=== PATIENT | female | born 1995 | race Two or more races ===

== ENCOUNTER 2020-09-02 11:25 | Emergency (ER) | payer MEDICAID ==
[~2020-09-02] VITALS: Ht 167.6 cm; Wt 167.3 kg
[2020-09-02 11:27] VITALS: BP 155/55
[2020-09-02] MEDS ORDERED: DIPH,PERTUSS(ACELL),TET VAC/PF 0.5 ML IM-VACC ONE ×2 (11:49→12:30)
[2020-09-02] MEDS ORDERED: NEOSPORIN OINT. PKT 1 PACKET ONE (12:11)
== END 2020-09-02 13:41 | disposition home or self-care (01) ==
LOC: ED 12:27
DX: S80.12XA Contusion of left lower leg, initial encounter (principal); F17.200 Nicotine dependence, unspecified, uncomplicated; X58.XXXA Exposure to other specified factors, initial encounter; Y93.89 Activity, other specified; Y92.009 Unspecified place in unspecified non-institutional (private) residence as the place of occurrence of the external cause; Y99.8 Other external cause status
CPT/HCPCS: 90471; 90715; 99283